=== PATIENT | female | born 1985 | race Caucasian/White ===

== ENCOUNTER 2019-11-10 18:32 | Emergency (ER) | payer SELFPAY ==
[~2019-11-10] VITALS: Ht 157.5 cm; Wt 61.2 kg
[2019-11-10 19:01] VITALS: Ht 157.5 cm; Wt 61.2 kg
[2019-11-10 19:31] VITALS: BP 128/56
== END 2019-11-10 19:31 | disposition home or self-care (01) ==
LOC: ED 18:32
DX: S06.0X0A Concussion without loss of consciousness, initial encounter (principal); S13.9XXA Sprain of joints and ligaments of unspecified parts of neck, initial encounter; W07.XXXA Fall from chair, initial encounter; Y93.89 Activity, other specified; Y92.89 Other specified places as the place of occurrence of the external cause; Y99.8 Other external cause status